=== PATIENT | male | born 1960 | race Caucasian/White ===

== ENCOUNTER 2020-04-19 11:30 | Emergency (ER) | payer OTHER ==
[~2020-04-19] VITALS: Ht 195.6 cm; Wt 115.7 kg
[2020-04-19 11:31] VITALS: BP 160/77
[2020-04-19] MEDS ORDERED: FEXO-116 PO (11:54)
[2020-04-19] MEDS ORDERED: GLIP10TA PO (11:54)
[2020-04-19] MEDS ORDERED: BRIL90TA PO (11:54)
[2020-04-19] MEDS ORDERED: METO25TA4 PO (11:54)
[2020-04-19] MEDS ORDERED: ECOT81TA5 PO (11:54)
[2020-04-19] MEDS ORDERED: D3 +TAB PO (11:54)
[2020-04-19] MEDS ORDERED: LANTINJ4 SC (11:54)
[2020-04-19] MEDS ORDERED: FLOM0.4C39 PO (11:54)
[2020-04-19] MEDS ORDERED: ATOR40TA75 PO (11:54)
[2020-04-19] MEDS ORDERED: NESI25TA PO (11:54)
[2020-04-19] MEDS ORDERED: OMEP40CA97 PO (11:54)
[2020-04-19] MEDS ORDERED: LISI10TA4 PO (11:54)
[2020-04-19] MEDS ORDERED: LEVEMIR (INSULIN DETEMIR) 1 UNITS/0.01ML SC ONE (12:15)
[2020-04-19] MEDS ORDERED: INSULANT SC (12:15)
[2020-04-19] MEDS ORDERED: METOPROLOL TART 25 MG TABLET PO ONE (12:15)
[2020-04-19] MEDS ORDERED: glipiZIDE (GLUCOTROL) 5 MG TAB PO ONE (12:15)
[2020-04-19] MEDS ORDERED: lisinopriL 10 MG TAB PO ONE (12:15)
[2020-04-19] MEDS ORDERED: COMF1MIS25 SC (12:21)
== END 2020-04-19 12:29 | disposition home or self-care (01) ==
LOC: M ED 11:30
DX: Z76.0 Encounter for issue of repeat prescription (principal); E11.9 Type 2 diabetes mellitus without complications; I25.2 Old myocardial infarction; I10 Essential (primary) hypertension; E78.5 Hyperlipidemia, unspecified; G43.909 Migraine, unspecified, not intractable, without status migrainosus; Z79.4 Long term (current) use of insulin; Z79.899 Other long term (current) drug therapy